=== PATIENT | male | born 1970 | race Caucasian/White ===

== ENCOUNTER 2016-02-26 07:40 | Emergency (ER) | payer BC, OTHER ==
[~2016-02-26] VITALS: Ht 175.3 cm; Wt 112.0 kg
[2016-02-26 08:18] LABS: ABSOLUTE NEUTROPHILS 5.8 thou/uL (1.4-8.2); BASOPHILS 0.8 % (0.0-2.0); HEMATOCRIT 45.7 % (42.0-52.0); HEMOGLOBIN 15.9 gm/dL (14.0-18.0); LYMPHOCYTES 20.3 % (24.0-44.0); MCH 32.3 pg (26.0-34.0); MCHC 34.8 % (28.0-37.0); MCV 92.9 fL (80.0-100.0); MONOCYTES 7.3 % (1.0-8.0); PLATELET COUNT 248 thou/uL (150-400); POLYS 66.6 % (36.0-66.0); RBC 4.92 mil/uL (4.50-6.00); RDW 13.2 % (10.5-14.5); WBC 8.7 thou/uL (4.0-11.0)
[2016-02-26 08:22] LABS: MANUAL DIFF NO
[2016-02-26 08:27] LABS: CALCIUM 9.2 mg/dL (8.5-10.1); CREATININE 0.9 mg/dL (0.6-1.3); POTASSIUM 4.6 mmol/L (3.5-5.1)
[2016-02-26] MEDS ORDERED: CLONIDINE0.1 PO (10:14)
[2016-02-26] MEDS ORDERED: PHENERGAN 25 MG25 M1 PO (10:14)
[2016-02-26 10:25] VITALS: BP 147/108
== END 2016-02-26 10:26 | disposition home or self-care (01) ==
LOC: ER 07:40
PROVIDERS: Emergency Medicine
DX: G43.909 Migraine, unspecified, not intractable, without status migrainosus (principal); R03.0 Elevated blood-pressure reading, without diagnosis of hypertension; H43.391 Other vitreous opacities, right eye; E66.3 Overweight; J45.909 Unspecified asthma, uncomplicated; Z88.0 Allergy status to penicillin; F10.99 Alcohol use, unspecified with unspecified alcohol-induced disorder

== ENCOUNTER → 2019-05-03 | Outpatient (CLI) | payer BC, OTHER ==
[~2019-05-03] MED LIST: CLONIDINE0.1 PO; PHENERGAN 25 MG25 M1 PO
== END ==
LOC: SJCVCIMAG 11:41
DX: I11.9 Hypertensive heart disease without heart failure (principal); I42.9 Cardiomyopathy, unspecified; E78.5 Hyperlipidemia, unspecified; Z72.0 Tobacco use